=== PATIENT | male | born 1945 | race Caucasian/White ===

== ENCOUNTER 2016-10-27 12:08 | Outpatient (CLI) | payer MEDICARE, BC | END 2016-10-27 12:09 | disposition home or self-care (01) | DX: Z00.00 Encounter for general adult medical examination without abnormal findings (principal); E11.9 Type 2 diabetes mellitus without complications; I10 Essential (primary) hypertension ==

== ENCOUNTER 2017-01-28 10:36 | Outpatient (CLI) | payer MEDICARE, BC | END 2017-01-28 10:37 | disposition home or self-care (01) | DX: E11.9 Type 2 diabetes mellitus without complications (principal) ==

== ENCOUNTER 2017-05-12 08:00 | Outpatient (CLI) | payer MEDICARE, BC ==
[2017-05-12 13:33] LABS: BUN - BLOOD UREA NITROGEN 31 mg/dL (6-20); CARBON DIOXIDE - CO2 29 mmol/L (21-32); CHLORIDE 104 mmol/L (101-111); CHOL/HDL RATIO 2.4 (<5.0); CHOLESTEROL 88 mg/dL; CREATININE 0.8 mg/dL (0.6-1.2); GFR - MDRD 95 (>89); GLUCOSE 173 mg/dL (70-100); HDL CHOLESTEROL 36 mg/dL; LDL/HDL RATIO 1.1 (<3.6); POTASSIUM 3.8 mmol/L (3.5-5.0); SODIUM 140 mmol/L (135-145); TRIGLYCERIDES 59 mg/dL; VLDL CHOLESTEROL 12 mg/dL
[2017-05-12 13:48] LABS: HEMOGLOBIN A1C 0.9 g/dL
== END 2017-05-12 08:01 | disposition home or self-care (01) ==
LOC: LAB.WCP 08:00
PROVIDERS: ATTEND Family Medicine
DX: E11.9 Type 2 diabetes mellitus without complications (principal); I10 Essential (primary) hypertension
CPT/HCPCS: 36415; 80048; 80061; 83036

== ENCOUNTER 2017-09-27 08:00 | Outpatient (CLI) | payer MEDICARE, BC ==
[2017-09-27 13:46] LABS: CALCIUM 8.9 mg/dL (8.5-10.3); CREATININE 0.7 mg/dL (0.6-1.2); POTASSIUM 3.6 mmol/L (3.5-5.0)
[2017-09-27 14:07] LABS: HEMOGLOBIN A1C 0.62 g/dL
== END 2017-09-27 08:01 | disposition home or self-care (01) ==
LOC: LAB.WCP 08:00
PROVIDERS: ATTEND Family Medicine
DX: I10 Essential (primary) hypertension (principal); E11.9 Type 2 diabetes mellitus without complications
CPT/HCPCS: 36415; 80048; 83036

== ENCOUNTER 2018-03-25 08:00 | Outpatient (CLI) | payer MEDICARE, BC ==
[2018-03-25 14:11] LABS: HEMOGLOBIN A1C 0.85 g/dL; HEMOGLOBIN A1C % 7.3 % (4.6-6.2)
[2018-03-25 14:15] LABS: ALBUMIN 3.6 g/dL (3.2-5.5); ALBUMIN/GLOBULIN RATIO 1.1 (1.0-2.2); BILIRUBIN,TOTAL 1.3 mg/dL (0.2-1.0); CALCIUM 8.6 mg/dL (8.5-10.3); CREATININE 0.8 mg/dL (0.6-1.2); TOTAL PROTEIN 6.8 g/dL (6.7-8.2)
== END 2018-03-25 08:01 | disposition home or self-care (01) ==
LOC: LAB.WCP 08:00
PROVIDERS: ATTEND Family Medicine
DX: I10 Essential (primary) hypertension (principal); E11.9 Type 2 diabetes mellitus without complications
CPT/HCPCS: 36415; 80053; 82043; 83036

== ENCOUNTER 2018-09-20 08:43 | Outpatient (CLI) | payer MEDICARE, BC ==
[2018-09-20 12:31] LABS: BASOPHILS % (AUTO) 0.6 %; EOSINOPHILS # (AUTO) 0.3 10^3/uL (0.0-0.7); EOSINOPHILS % (AUTO) 4.7 %; HGB - HEMOGLOBIN 14.3 g/dL (14.0-18.0); LYMPHOCYTES # (AUTO) 2.1 10^3/uL (1.5-3.5); MEAN CORPUSCULAR HEMOGLOBIN 30.9 pg (27.0-31.0); MEAN CORPUSCULAR HGB CONC 34.2 g/dL (32.0-36.0); MEAN CORPUSCULAR VOLUME 90.6 fL (80.0-94.0); MEAN PLATELET VOLUME 9.5 fL (7.4-11.4); MONOCYTES # (AUTO) 0.5 10^3/uL (0.0-1.0); MONOCYTES % (AUTO) 7.7 %; PLT - PLATELET COUNT 168 10^3/uL (130-450); RED BLOOD COUNT 4.61 10^6/uL (4.70-6.10); RED CELL DISTRIBUTION WIDTH 13.8 % (12.0-15.0); WHITE BLOOD COUNT 5.9 x10^3/uL (4.8-10.8)
[2018-09-20 12:49] LABS: ALBUMIN 4.1 g/dL (3.2-5.5); ALBUMIN/GLOBULIN RATIO 1.5 (1.0-2.2); BILIRUBIN,TOTAL 1.8 mg/dL (0.2-1.0); CALCIUM 8.8 mg/dL (8.5-10.3); CREATININE 0.8 mg/dL (0.6-1.2); TOTAL PROTEIN 6.9 g/dL (6.7-8.2)
[2018-09-20 13:15] LABS: HB2 TOTAL 15.4 g/dL; HEMOGLOBIN A1C 1.01 g/dL; HEMOGLOBIN A1C % 8.2 % (4.6-6.2)
== END 2018-09-20 23:59 | disposition home or self-care (01) ==
LOC: LAB.WCP 08:43
PROVIDERS: ATTEND Family Medicine
DX: M13.862 Other specified arthritis, left knee (principal); E11.9 Type 2 diabetes mellitus without complications; I10 Essential (primary) hypertension
CPT/HCPCS: 36415; 80053; 82043; 83036; 85025

== ENCOUNTER 2018-12-15 07:17 | Outpatient (CLI) | payer MEDICARE, BC ==
[2018-12-15 12:28] LABS: CALCIUM 9.4 mg/dL (8.5-10.3)
[2018-12-15 12:46] LABS: HB2 TOTAL 14.5 g/dL; HEMOGLOBIN A1C 1.02 g/dL; HEMOGLOBIN A1C % 8.6 % (4.6-6.2)
[2018-12-15 12:51] LABS: ALBUMIN 3.8 g/dL (3.2-5.5); ALBUMIN/GLOBULIN RATIO 1.2 (1.0-2.2); BILIRUBIN,TOTAL 1.2 mg/dL (0.2-1.0); TOTAL PROTEIN 6.9 g/dL (6.7-8.2)
== END 2018-12-15 07:18 | disposition home or self-care (01) ==
LOC: LAB.WCP 07:17
PROVIDERS: ATTEND Family Medicine
DX: Z00.00 Encounter for general adult medical examination without abnormal findings (principal); E11.9 Type 2 diabetes mellitus without complications; I10 Essential (primary) hypertension
CPT/HCPCS: 36415; 80053; 82043; 83036

== ENCOUNTER 2019-12-05 08:32 | Outpatient (CLI) | payer MEDICARE, BC ==
[2019-12-05 12:12] LABS: ALBUMIN 3.8 g/dL (3.2-5.5); ALBUMIN/GLOBULIN RATIO 1.4 (1.0-2.2); BILIRUBIN,TOTAL 1.4 mg/dL (0.2-1.0); CALCIUM 8.6 mg/dL (8.5-10.3); CREATININE 0.8 mg/dL (0.6-1.2); TOTAL PROTEIN 6.5 g/dL (6.7-8.2)
[2019-12-05 12:17] LABS: HB2 TOTAL 13.8 g/dL; HEMOGLOBIN A1C 0.85 g/dL; HEMOGLOBIN A1C % 7.8 % (4.6-6.2)
== END 2019-12-05 23:59 | disposition home or self-care (01) ==
LOC: LAB.WCP 08:32
PROVIDERS: ATTEND Family Medicine
DX: E11.9 Type 2 diabetes mellitus without complications (principal)
CPT/HCPCS: 36415; 80053; 83036

== ENCOUNTER 2020-03-01 08:00 | Outpatient (CLI) | payer MEDICARE, BC ==
[2020-03-01 13:04] LABS: BASOPHILS # (AUTO) 0.1 10^3/uL (0.0-0.1); EOSINOPHILS # (AUTO) 0.3 10^3/uL (0.0-0.7); EOSINOPHILS % (AUTO) 5.2 %; HGB - HEMOGLOBIN 13.2 g/dL (14.0-18.0); LYMPHOCYTES # (AUTO) 2.5 10^3/uL (1.5-3.5); LYMPHOCYTES % (AUTO) 41.2 %; MEAN CORPUSCULAR VOLUME 93.6 fL (80.0-94.0); MEAN PLATELET VOLUME 11.6 fL (7.4-11.4); MONOCYTES # (AUTO) 0.5 10^3/uL (0.0-1.0); MONOCYTES % (AUTO) 7.7 %; NEUTROPHILS # (AUTO) 2.7 10^3/uL (1.5-6.6); NEUTROPHILS % (AUTO) 44.6 %; PLT - PLATELET COUNT 198 10^3/uL (130-450); RED CELL DISTRIBUTION WIDTH 13.7 % (12.0-15.0)
[2020-03-01 13:38] LABS: HB2 TOTAL 14.1 g/dL; HEMOGLOBIN A1C 0.79 g/dL; HEMOGLOBIN A1C % 7.3 % (4.6-6.2)
[2020-03-01 13:55] LABS: ALBUMIN/GLOBULIN RATIO 1.4 (1.0-2.2); ALKALINE PHOSPHATASE 49 IU/L (42-121); ALT ALANINE AMINOTRANSFERASE 31 IU/L (10-60); AST ASPARTATE AMINOTRANSFERASE 30 IU/L (10-42); BILIRUBIN,TOTAL 1.6 mg/dL (0.2-1.0); BUN - BLOOD UREA NITROGEN 27 mg/dL (6-20); CALCIUM 8.7 mg/dL (8.5-10.3); CARBON DIOXIDE - CO2 27 mmol/L (21-32); CHLORIDE 106 mmol/L (101-111); CHOL/HDL RATIO 2.2 (<5.0); CHOLESTEROL 75 mg/dL; CREATININE 0.9 mg/dL (0.6-1.2); HDL CHOLESTEROL 34 mg/dL; SODIUM 141 mmol/L (135-145); TOTAL PROTEIN 6.8 g/dL (6.7-8.2)
[2020-03-01 14:12] LABS: GLUCOSE 57 mg/dL (70-100)
== END 2020-03-01 23:59 | disposition home or self-care (01) ==
LOC: LAB.WCP 08:00
PROVIDERS: ATTEND Family Medicine
DX: I10 Essential (primary) hypertension (principal); E11.9 Type 2 diabetes mellitus without complications
CPT/HCPCS: 36415; 80053; 80061; 82043; 82570; 83036; 83721; 84443; 85025

== ENCOUNTER 2020-03-04 10:00 | Outpatient (CLI) | payer MEDICARE, BC ==
[2020-03-05 13:05] LABS: CREATININE,URINE 108.8 mg/dL; MICROALBUM/CREATININE RATIO,UR 9.2 ug/mg (<30.0)
== END 2020-03-04 23:59 | disposition home or self-care (01) ==
LOC: LAB.R 10:00
PROVIDERS: ATTEND Family Medicine
DX: E11.9 Type 2 diabetes mellitus without complications (principal); I10 Essential (primary) hypertension
CPT/HCPCS: 82043; 82570

== ENCOUNTER 2020-05-30 08:00 | Outpatient (CLI) | payer MEDICARE, BC ==
[2020-05-30 11:50] LABS: CALCIUM 9.4 mg/dL (8.5-10.3)
[2020-05-30 12:09] LABS: CREATININE,URINE 174.3 mg/dL; MICROALBUM/CREATININE RATIO,UR 66.6 ug/mg (<30.0); MICROALBUMIN,URINE 11.6 mg/dL (0-300.0)
[2020-05-30 12:16] LABS: HB2 TOTAL 14.2 g/dL; HEMOGLOBIN A1C 0.83 g/dL; HEMOGLOBIN A1C % 7.5 % (4.6-6.2)
== END 2020-05-30 23:59 | disposition home or self-care (01) ==
LOC: LAB.WCP 08:00
PROVIDERS: ATTEND Family Medicine
DX: E11.9 Type 2 diabetes mellitus without complications (principal); I10 Essential (primary) hypertension
CPT/HCPCS: 36415; 80048; 82043; 82570; 83036

== ENCOUNTER 2020-08-29 07:00 | Outpatient (CLI) | payer MEDICARE, BC ==
--- NOTE | 2020-08-29 18:54 | XRAY Report ---
PROCEDURE: Knee 4 View BILAT INDICATIONS: ARTHRITIS, L KNEE TECHNIQUE: 4 views of the bilateral knee(s) were acquired. COMPARISON: None. 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 No fractures or dislocations. No suspicious bony lesio ns. Soft tissues: No joint effusion. Chondrocalcinosis in bilateral medial and lateral femoral tibial co mpartments are also seen. 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 Bilateral medi al and lateral femoral tibial compartment chondrocalcinosis. Reviewed by: Hudson Cardoza MD on 08/29/2020 5:53 PM AKST Approved by: Hudson Cardoza MD on 08/29/2020 5:53 PM AKST Station ID: [id number]
== END 2020-08-29 23:59 | disposition home or self-care (01) ==
LOC: DI.N 07:00
PROVIDERS: ATTEND Orthopaedic Surgery
DX: M17.0 Bilateral primary osteoarthritis of knee (principal); M11.262 Other chondrocalcinosis, left knee; M11.261 Other chondrocalcinosis, right knee

== ENCOUNTER 2020-10-17 08:00 | Outpatient (CLI) | payer MEDICARE, BC ==
[2020-10-17 18:54] LABS: CALCIUM 9.1 mg/dL (8.5-10.3)
[2020-10-17 19:10] LABS: HEMOGLOBIN A1c% 8.1 % (4.27-6.07)
== END 2020-10-17 23:59 | disposition home or self-care (01) ==
LOC: LAB.WCP 08:00
PROVIDERS: ATTEND Physician Assistant Medical
DX: E11.9 Type 2 diabetes mellitus without complications (principal)
CPT/HCPCS: 36415; 80048; 82043; 82570; 83036

== ENCOUNTER 2020-10-21 10:00 | Outpatient (CLI) | payer MEDICARE, BC ==
[2020-10-21 19:44] LABS: CREATININE,URINE 157.2 mg/dL; MICROALBUM/CREATININE RATIO,UR 19.7 ug/mg (<30.0); MICROALBUMIN,URINE 3.1 mg/dL (0-300.0)
== END 2020-10-21 23:59 | disposition home or self-care (01) ==
LOC: LAB.R 10:00
PROVIDERS: ATTEND Physician Assistant Medical
DX: E11.9 Type 2 diabetes mellitus without complications (principal)
CPT/HCPCS: 82043; 82570

== ENCOUNTER 2021-01-24 08:00 | Outpatient (CLI) | payer MEDICARE, BC ==
[2021-01-24 19:00] LABS: ALBUMIN 4.1 g/dL (3.2-5.5); ALBUMIN/GLOBULIN RATIO 1.5 (1.0-2.2); ALKALINE PHOSPHATASE 56 IU/L (42-121); ALT ALANINE AMINOTRANSFERASE 32 IU/L (10-60); AST ASPARTATE AMINOTRANSFERASE 30 IU/L (10-42); BUN - BLOOD UREA NITROGEN 24 mg/dL (6-20); CALCIUM 8.7 mg/dL (8.5-10.3); CARBON DIOXIDE - CO2 24 mmol/L (21-32); CHLORIDE 104 mmol/L (101-111); CHOL/HDL RATIO 2.4 (<5.0); CHOLESTEROL 90 mg/dL; CREATININE 0.8 mg/dL (0.6-1.2); GFR - MDRD 94 (>89); GLUCOSE 149 mg/dL (70-100); HDL CHOLESTEROL 38 mg/dL; LDL CHOLESTEROL,CALCULATED 38 mg/dL; POTASSIUM 3.8 mmol/L (3.5-5.0); SODIUM 137 mmol/L (135-145); TOTAL PROTEIN 6.9 g/dL (6.7-8.2); TRIGLYCERIDES 71 mg/dL; VLDL CHOLESTEROL 14 mg/dL
[2021-01-24 19:27] LABS: BILIRUBIN,TOTAL 1.1 mg/dL (0.2-1.0)
[2021-01-24 20:42] LABS: ESTIMATED AVERAGE GLUCOSE 169 mg/dL (70-100); HEMOGLOBIN A1c% 7.5 % (4.27-6.07)
== END 2021-01-24 23:59 | disposition home or self-care (01) ==
LOC: LAB.WCP 08:00
PROVIDERS: ATTEND Physician Assistant Medical
DX: E11.9 Type 2 diabetes mellitus without complications (principal)
CPT/HCPCS: 36415; 80053; 80061; 83036; 83721

== ENCOUNTER 2021-06-16 09:58 | Outpatient (CLI) | payer MEDICARE, BC ==
[2021-06-16 12:06] LABS: CALCIUM 9.2 mg/dL (8.5-10.3); POTASSIUM 3.8 mmol/L (3.5-5.0)
[2021-06-16 12:37] LABS: ESTIMATED AVERAGE GLUCOSE 194 mg/dL (70-100); HEMOGLOBIN A1c% 8.4 % (4.27-6.07)
== END 2021-06-16 23:59 | disposition home or self-care (01) ==
LOC: LAB.WCP 09:58
PROVIDERS: ATTEND Physician Assistant Medical
DX: E11.9 Type 2 diabetes mellitus without complications (principal)
CPT/HCPCS: 36415; 80048; 83036

== ENCOUNTER 2021-09-16 08:00 | Outpatient (CLI) | payer MEDICARE, BC ==
[2021-09-16 12:17] LABS: ALBUMIN 3.8 g/dL (3.2-5.5); ALBUMIN/GLOBULIN RATIO 1.3 (1.0-2.2); ALKALINE PHOSPHATASE 50 IU/L (42-121); ALT ALANINE AMINOTRANSFERASE 24 IU/L (10-60); AST ASPARTATE AMINOTRANSFERASE 23 IU/L (10-42); BILIRUBIN,TOTAL 1.3 mg/dL (0.2-1.0); BUN - BLOOD UREA NITROGEN 42 mg/dL (6-20); CALCIUM 9.1 mg/dL (8.5-10.3); CARBON DIOXIDE - CO2 28 mmol/L (21-32); CHLORIDE 102 mmol/L (101-111); CHOL/HDL RATIO 2.3 (<5.0); CHOLESTEROL 77 mg/dL; CREATININE 1.4 mg/dL (0.6-1.2); GFR - MDRD 49 (>89); GLUCOSE 84 mg/dL (70-100); HDL CHOLESTEROL 34 mg/dL; LDL CHOLESTEROL,CALCULATED 34 mg/dL; SODIUM 141 mmol/L (135-145); TOTAL PROTEIN 6.8 g/dL (6.7-8.2); TRIGLYCERIDES 45 mg/dL; VLDL CHOLESTEROL 9 mg/dL
[2021-09-16 12:46] LABS: ESTIMATED AVERAGE GLUCOSE 174 mg/dL (70-100); HEMOGLOBIN A1c% 7.7 % (4.27-6.07)
== END 2021-09-16 23:59 ==
LOC: LAB.WCP 08:00
PROVIDERS: ATTEND Physician Assistant Medical
DX: E11.9 Type 2 diabetes mellitus without complications (principal)
CPT/HCPCS: 36415; 80053; 80061; 83036; 83721

== ENCOUNTER 2021-12-16 07:54 | Outpatient (CLI) | payer MEDICARE, BC ==
[2021-12-16 12:13] LABS: CALCIUM 9.2 mg/dL (8.5-10.3); CREATININE 1.2 mg/dL (0.6-1.2); POTASSIUM 3.6 mmol/L (3.5-5.0)
[2021-12-16 12:23] LABS: ESTIMATED AVERAGE GLUCOSE 157 mg/dL (70-100); HEMOGLOBIN A1c% 7.1 % (4.27-6.07)
[2021-12-16 12:34] LABS: CREATININE,URINE 251.4 mg/dL; MICROALBUM/CREATININE RATIO,UR 6.8 ug/mg (<30.0); MICROALBUMIN,URINE 1.7 mg/dL (0-300.0)
== END 2021-12-16 07:55 | disposition home or self-care (01) ==
LOC: LAB.N 07:54
PROVIDERS: ATTEND Physician Assistant Medical
DX: E11.9 Type 2 diabetes mellitus without complications (principal)
CPT/HCPCS: 36415; 80048; 82043; 82570; 83036

== ENCOUNTER 2021-12-19 11:20 | Outpatient (CLI) | payer MEDICARE, BC ==
[2021-12-19 18:04] LABS: BASOPHILS # (AUTO) 0.1 10^3/uL (0.0-0.1); BASOPHILS % (AUTO) 0.8 %; EOSINOPHILS # (AUTO) 0.2 10^3/uL (0.0-0.7); EOSINOPHILS % (AUTO) 3.3 %; HCT - HEMATOCRIT 41.8 % (42.0-52.0); HGB - HEMOGLOBIN 13.5 g/dL (14.0-18.0); LYMPHOCYTES # (AUTO) 2.6 10^3/uL (1.5-3.5); LYMPHOCYTES % (AUTO) 39.7 %; MEAN CORPUSCULAR HEMOGLOBIN 30.2 pg (27.0-31.0); MEAN CORPUSCULAR HGB CONC 32.3 g/dL (32.0-36.0); MEAN CORPUSCULAR VOLUME 93.5 fL (80.0-94.0); MEAN PLATELET VOLUME 11.3 fL (7.4-11.4); MONOCYTES # (AUTO) 0.5 10^3/uL (0.0-1.0); MONOCYTES % (AUTO) 7.4 %; NEUTROPHILS # (AUTO) 3.2 10^3/uL (1.5-6.6); NEUTROPHILS % (AUTO) 48.5 %; PLT - PLATELET COUNT 199 10^3/uL (130-450); RED BLOOD COUNT 4.47 10^6/uL (4.70-6.10); RED CELL DISTRIBUTION WIDTH 13.3 % (12.0-15.0); WHITE BLOOD COUNT 6.7 x10^3/uL (4.8-10.8)
[2021-12-19 18:25] LABS: THYROID STIMULATING HORMONE 0.93 uIU/mL (0.34-5.60)
== END 2021-12-19 11:21 | disposition home or self-care (01) ==
LOC: LAB.N 11:20
PROVIDERS: ATTEND Physician Assistant Medical
DX: R55 Syncope and collapse (principal); I10 Essential (primary) hypertension
CPT/HCPCS: 36415; 83735; 84443; 85025

== ENCOUNTER 2022-05-13 20:39 | Outpatient (CLI) | payer MEDICARE, BC | END 2022-05-13 20:40 | disposition critical access hospital (66) | LOC: EMS 20:39 | DX: R55 Syncope and collapse (principal); R00.1 Bradycardia, unspecified | CPT/HCPCS: A0425; A0427 ==

== ENCOUNTER 2022-05-13 20:50 | Emergency (ER) | payer MEDICARE, BC ==
--- NOTE | 2022-05-13 20:58 | ED Physician Documentation ---
History of Present Illness - Stated complaint Stated Complaint: ARNAUD - Chief complaint Chief Complaint: Neuro - History obtained from History obtained from: Patient, EMS - History of Present Illness Timing: Prior to arrival - Additonal information Additional information: 76-year-old male with history of CHF, insulin-dependent diabetes, hypertension, hyperlipidemia presents by EMS from home for bradycardia and syncope. Patient states that he had just finished eating dinner and felt in his usual state of health. He was laying down when all of a sudden his was shaking him awake and stating that he had passed out. He states that he felt like he needed to use the restroom and passed out again. Patient states that he fell on his hands and knees, says "I don't think I hit my head", denies use of blood thinners. EMS report that when they arrived the patient's heart rate was 30. They administered 2 mg of atropine and gradually the patient's heart rate improved to 100 bpm. Accu-Chek not obtained in route. On arrival patient stated that he felt "fine" and denied any further complaints. He denied any chest pain, shortness of breath, leg swelling, head pain, blurred vision, other complaints this time. He states he cannot remember the medicines that he takes, however his is in route to provide full medical list. Review of Systems Ten Systems: 10 systems reviewed and negative Constitutional: denies: Fever, Chills, Myalgias Cardiac: denies: Chest pain / pressure, Palpitations, Pedal edema, Calf pain Respiratory: denies: Dyspnea, Cough, Hemoptysis, Wheezing Neurologic: reports: Syncope. denies: Seizure PD PAST MEDICAL HISTORY - Past Medical History Past Medical History: Yes Cardiovascular: Congestive heart failure, High cholesterol Endocrine/Autoimmune: Type 2 diabetes - Allergies Allergies/Adverse Reactions: Allergies Allergy/AdvReac Type Severity Reaction Status Date / Time No Known Drug Allergies Allergy Verified 05/13/22 21:05 PD ED PE NORMAL - Vitals Vital signs reviewed: Yes - General General: Alert and oriented X 3, No acute distress, Well developed/nourished - HEENT HEENT: Atraumatic, PERRL, EOMI, Ears normal - Neck Neck: Supple, no meningeal sign, No bony TTP, No adenopathy - Cardiac Cardiac: RRR, No gallop, No rub, Strong equal pulses - Respiratory Respiratory: No respiratory distress, Clear bilaterally - Abdomen Abdomen: Soft, Non tender, Non distended, No organomegaly - Male Male : Deferred - Rectal Rectal: Deferred - Back Back: No CVA TTP, No spinal TTP - Derm Derm: Normal color, Warm and dry, No rash - Extremities Extremities: No deformity, No tenderness to palpate, Normal ROM s pain, No edema - Neuro Neuro: Alert and oriented X 3, network specialist 2-12 intact, No motor deficit, Normal speech - Psych Psych: Normal mood, Normal affect Results - Vitals Vitals: Vital Signs - 24 hr 05/13/22 05/13/22 05/13/22 21:01 21:05 21:34 Temperature 36.8 C Heart Rate 101 H 101 H 98 Respiratory 17 16 16 Rate Blood Pressure 120/61 120/61 114/65 O2 Saturation 98 100 97 05/13/22 05/13/22 05/13/22 22:04 22:30 23:00 Temperature Heart Rate 90 85 77 Respiratory 16 14 14 Rate Blood Pressure 133/71 H 113/64 127/71 O2 Saturation 99 98 98 05/13/22 05/14/22 05/14/22 23:30 00:00 00:30 Temperature Heart Rate 78 77 79 Respiratory 16 15 14 Rate Blood Pressure 134/64 H 134/64 H 126/74 O2 Saturation 98 98 99 05/14/22 05/14/22 05/14/22 01:00 01:30 02:00 Temperature 37.0 C Heart Rate 78 75 76 Respiratory 14 20 14 Rate Blood Pressure 128/75 114/63 119/67 O2 Saturation 98 100 98 05/14/22 05/14/22 05/14/22 02:30 03:00 03:30 Temperature Heart Rate 70 79 74 Respiratory 15 15 17 Rate Blood Pressure 114/64 118/65 111/72 O2 Saturation 98 98 98 05/14/22 05/14/22 05/14/22 04:00 04:30 05:00 Temperature Heart Rate 75 75 70 Respiratory 14 12 14 Rate Blood Pressure 111/72 121/55 L 121/55 L O2 Saturation 96 98 96 05/14/22 05/14/22 05:30 06:00 Temperature Heart Rate 76 73 Respiratory 16 13 Rate Blood Pressure 121/58 L 111/61 O2 Saturation 98 97 Oxygen O2 Source Room air Oxygen Flow Rate 2 - EKG (time done) 2058 Rate: Rate (enter#) (101) Rhythm: Sinus tachycardia [place]: Normal Intervals: LBBB - Labs Labs: Laboratory Tests 05/13/22 05/13/22 05/13/22 21:26 21:26 21:26 WBC 6.9 RBC 3.72 L Hgb 11.4 L Hct 34.7 L MCV 93.3 MCH 30.6 MCHC 32.9 RDW 13.2 Plt Count 171 MPV 10.5 Neut # (Auto) 4.5 Lymph # (Auto) 1.6 [place] # (Auto) 0.5 Eos # (Auto) 0.2 Baso # (Auto) 0.0 Absolute Nucleated RBC 0.00 Nucleated RBC % 0.0 PT 11.9 INR 1.1 Sodium 141 Potassium 4.3 Chloride 111 Carbon Dioxide 19 L Anion Gap 11.0 BUN 38 H Creatinine 1.4 H Estimated GFR (MDRD) 49 L Glucose 149 H Calcium 8.9 Magnesium 1.6 L Total Bilirubin 1.3 H AST 97 H ALT 68 H Alkaline Phosphatase 57 Troponin I High Sens B-Natriuretic Peptide Total Protein 6.7 Albumin 3.8 Globulin 2.9 Albumin/Globulin Ratio 1.3 TSH SARS-CoV-2 (PCR) 05/13/22 05/13/22 05/13/22 21:26 21:26 21:26 WBC RBC Hgb Hct MCV MCH MCHC RDW Plt Count MPV Neut # (Auto) Lymph # (Auto) [place] # (Auto) Eos # (Auto) Baso # (Auto) Absolute Nucleated RBC Nucleated RBC % PT INR Sodium Potassium Chloride Carbon Dioxide Anion Gap BUN Creatinine Estimated GFR (MDRD) Glucose Calcium Magnesium Total Bilirubin AST ALT Alkaline Phosphatase Troponin I High Sens 8.4 B-Natriuretic Peptide 65 Total Protein Albumin Globulin Albumin/Globulin Ratio TSH 2.93 SARS-CoV-2 (PCR) 05/14/22 04:19 WBC RBC Hgb Hct MCV MCH MCHC RDW Plt Count MPV Neut # (Auto) Lymph # (Auto) [place] # (Auto) Eos # (Auto) Baso # (Auto) Absolute Nucleated RBC Nucleated RBC % PT INR Sodium Potassium Chloride Carbon Dioxide Anion Gap BUN Creatinine Estimated GFR (MDRD) Glucose Calcium Magnesium Total Bilirubin AST ALT Alkaline Phosphatase Troponin I High Sens B-Natriuretic Peptide Total Protein Albumin Globulin Albumin/Globulin Ratio TSH SARS-CoV-2 (PCR) NOT DETECTED PD MEDICAL DECISION MAKING - ED course Complexity details: reviewed old records, reviewed results, re-evaluated patient, considered differential, d/w patient, d/w [employer] sales consultant ED course: Patient with syncopal episode, presumed to be from profound, severe bradycardia. Resolved after 2 mg of atropine. EMS strip shows advanced third-degree heart block. Patient's only antinodal medication on his record is carvedilol. arrived shortly after the patient did and stated that the patient recently had a catheterization, which showed no blockages in his arteries. Cardiology work-up is obtained. Patient currently sinus rhythm at 80 bpm, left bundle branch seen on EKG, patient states this is a known finding for him. Labs and imaging are thus far unremarkable. Patient has chronic CKD, at baseline. Has remained in sinus rhythm at 80 to 100 bpm since arrival, no further episodes of bradycardia. Patient's cardiology team at [facility] (Dr. Jess Calix) consulted, who stated that the patient was evaluated recently for another syncopal episode. He underwent cardiac monitoring, which showed a concerning run of V. tach at that time. Given that the patient has had an episode of profound bradycardia and V. tach on outpatient cardiac monitoring patient should be transferred for EP evaluation and possible pacemaker placement. CT of brain shows probable old findings, however cannot rule out small subarachnoid. Recommended repeat evaluation in 4 hours. Patient states that he feels fine, there is no sequela of trauma, he states that he fell onto his hands and knees and did not hit his head. We will repeat CT imaging, if no changes are stable will call for transfer. and patient are updated of the plan, they are in agreement at this time. Repeat head CT negative for acute findings. Patient has remained in sinus rhythm. Patient accepted by Dr. Morris at [facility] for transfer. COVID test pending, awaiting transport. 0600 - EMS transport arrived. Patient transferred in stable condition. Departure - Departure Disposition: 02 Transfer Acute Care Hosp Clinical Impression: Complete heart block Syncope Qualifiers: Syncope type: unspecified Qualified Code(s): R55 - Syncope and collapse
--- NOTE | 2022-05-13 21:26 | XRAY Report ---
PROCEDURE: Chest 1 View X-Ray INDICATIONS: SYNCOPE TECHNIQUE: One view of the chest was acquired. COMPARISON: None. FINDINGS: Surgical changes and devices: None. Lungs and pleura: No pleural effusions or pneumothorax. Lungs are clear. Mediastinum: Mediastinal contours appear normal. Heart size is normal. Bones and chest wall: No suspicious bony lesions. Overlying soft tissues appear unremarkable. IMPRESSION: No acute cardiopulmonary process demonstrated radiographically. Reviewed by: Jass Ch MD on 05/13/2022 9:24 PM PDT Approved by: Jass Ch MD on 05/13/2022 9:24 PM PDT Station ID: [id number]
[2022-05-13 21:37] LABS: BASOPHILS % (AUTO) 0.6 %; EOSINOPHILS # (AUTO) 0.2 10^3/uL (0.0-0.7); EOSINOPHILS % (AUTO) 3.1 %; HCT - HEMATOCRIT 34.7 % (42.0-52.0); HGB - HEMOGLOBIN 11.4 g/dL (14.0-18.0); LYMPHOCYTES # (AUTO) 1.6 10^3/uL (1.5-3.5); LYMPHOCYTES % (AUTO) 23.8 %; MEAN CORPUSCULAR HEMOGLOBIN 30.6 pg (27.0-31.0); MEAN CORPUSCULAR HGB CONC 32.9 g/dL (32.0-36.0); MEAN CORPUSCULAR VOLUME 93.3 fL (80.0-94.0); MEAN PLATELET VOLUME 10.5 fL (7.4-11.4); MONOCYTES # (AUTO) 0.5 10^3/uL (0.0-1.0); MONOCYTES % (AUTO) 7.4 %; NEUTROPHILS # (AUTO) 4.5 10^3/uL (1.5-6.6); NEUTROPHILS % (AUTO) 64.7 %; PLT - PLATELET COUNT 171 10^3/uL (130-450); RED BLOOD COUNT 3.72 10^6/uL (4.70-6.10); RED CELL DISTRIBUTION WIDTH 13.2 % (12.0-15.0); WHITE BLOOD COUNT 6.9 x10^3/uL (4.8-10.8)
[2022-05-13 21:39] LABS: INR 1.1 (0.8-1.2); PT - PROTHROMBIN TIME 11.9 secs (9.9-12.6)
[2022-05-13 21:58] LABS: ALBUMIN 3.8 g/dL (3.2-5.5); ALBUMIN/GLOBULIN RATIO 1.3 (1.0-2.2); BILIRUBIN,TOTAL 1.3 mg/dL (0.2-1.0); CALCIUM 8.9 mg/dL (8.5-10.3); CREATININE 1.4 mg/dL (0.6-1.2); MAGNESIUM 1.6 mg/dL (1.7-2.8); POTASSIUM 4.3 mmol/L (3.5-5.0); TOTAL PROTEIN 6.7 g/dL (6.7-8.2)
--- NOTE | 2022-05-13 22:24 | CT Report ---
PROCEDURE: HEAD WO INDICATIONS: SYNCOPE TECHNIQUE: Noncontrast 4.5 mm thick angled axial sections acquired from the foramen magnum to the vertex. For r adiation dose reduction, the following was used: automated exposure control, adjustment of mA and/or kV according to patient size. COMPARISON: None. FINDINGS: There are a few small focal hyperdensities localizing to the anterior frontal cortex adjacent to the skull base this is favored to represent volume averaging with the skull and benign hyperostosis front jocelin, subtle cortical contusion or small arachnoid hemorrhage would appear similar and cannot be stri ctly excluded. There is otherwise no evidence of acute intracranial hemorrhage or abnormal extra-axia l fluid collection. No evidence of mass effect or midline shift. The ventricular system and basilar c isterns are patent. Mild global volume loss and chronic microvascular ischemic changes. Paranasal sin uses and mastoid air cells are predominantly clear other than moderate left mastoid air cell effusion and moderate mucosal thickening in the right maxillary sinus. No significant orbital abnormality. IMPRESSION: Indeterminate cortical hypodensities in the frontal lobes, favored to represent volume averaging marianela fact although small cortical contusions or subarachnoid hemorrhages cannot be strictly excluded. Hair elate for any history of head impact during syncopal episode. Four hour follow-up examination would b e helpful to differentiate artifact from intracranial hemorrhage. Reviewed by: Jass Ch MD on 05/13/2022 10:23 PM PDT Approved by: Jass Ch MD on 05/13/2022 10:23 PM PDT Station ID: [id number]
[2022-05-14 06:04] VITALS: BP 111/61
--- NOTE | 2022-05-14 09:09 | CT Report ---
PROCEDURE: HEAD WO INDICATIONS: RPT ABNORMAL CT TECHNIQUE: Noncontrast 4.5 mm thick angled axial sections acquired from the foramen magnum to the vertex. For r adiation dose reduction, the following was used: automated exposure control, adjustment of mA and/or kV according to patient size. COMPARISON: CT head without, 05/13/2022. FINDINGS: Image quality: Excellent. CSF spaces: Basal cisterns are patent. No extra-axial fluid collections. Ventricles are normal in size and shape. Brain: No midline shift. No intracranial masses or hemorrhage. Mild cerebral volume loss and perive ntricular white matter chronic small vessel ischemic changes. Skull and face: Calvarium and visualized facial bones are intact, without suspicious lesions. Sinuses: Visualized sinuses are clear. There is fluid in the left mastoids. IMPRESSION: 1. No acute intracranial abnormalities. Previously described left frontal indeterminate hypodensities are most likely caused by artifacts. 2. Fluid in the left mastoids. Recommend clinical correlation for mastoiditis. No significant discrepancy with the preliminary interpretation. Reviewed by: Black Salomon MD on 05/14/2022 9:08 AM PDT Approved by: Black Salomon MD on 05/14/2022 9:08 AM PDT Station ID: [id number]
== END 2022-05-14 06:13 | disposition short-term general hospital (02) ==
LOC: EDUNIT# → ED 20:50
DX: I44.2 Atrioventricular block, complete (principal); Z20.822 Contact with and (suspected) exposure to COVID-19
CPT/HCPCS: 36415; 80053; 83735; 83880; 84443; 84484; 85025; 85610; 93005; 99285; 99291

== ENCOUNTER 2022-05-14 06:19 | Outpatient (CLI) | payer MEDICARE, BC | END 2022-05-14 06:20 | disposition short-term general hospital (02) | LOC: EMS 06:19 | PROVIDERS: ATTEND Emergency Medicine | DX: I44.2 Atrioventricular block, complete (principal) | CPT/HCPCS: A0425; A0427 ==

== ENCOUNTER 2022-07-29 06:23 | Day surgery (SDC) | payer MEDICARE, BC ==
[2022-07-29] MEDS ORDERED: LACTATED RINGERS 1,000 ML IV ONE ×2 (06:42→08:13)
[2022-07-29] MEDS ORDERED: PROPOFOL 200 MG/20 ML VIAL IVP ONE (07:37)
[2022-07-29] MEDS ORDERED: PROPOFOL 500 MG/50 ML 500 MG/50 ML VIAL ONE (07:37)
--- NOTE | 2022-07-29 07:40 | ANESTHESIA ---
Pre-Anesthesia VS, & Labs - Diagnosis screening colonoscopy - Procedure colonoscopy Vital Signs: Temp Pulse Resp BP Pulse Ox O2 Flow Rate 36.1 C L 60 16 154/66 H 100 0 07/29/22 06:42 07/29/22 06:42 07/29/22 06:42 07/29/22 06:42 07/29/22 06:42 07/29/22 06:42 Height: 5 ft 8 in Weight (kg): 79.4 kg Body Mass Index: 26.6 BMI Classification: Overweight - NPO >8 hours - Lab Results Current Lab Results: Laboratory Tests 07/29/22 06:56: POC Whole Bld Glucose 120 H Home Medications and Allergies Home Medications: Ambulatory Orders Aspirin [[place] Aspirin] 81 mg PO DAILY 07/28/22 Carvedilol [Coreg] 25 mg PO DAILY 07/28/22 Dulaglutide [Trulicity] 0.75 mg SQ DAILY 07/28/22 Glipizide [Glipizide ER] 5 mg PO DAILY 07/28/22 Insulin Glargine [Lantus Solostar] 100 unit SQ DAILY 07/28/22 Losartan [Cozaar] 100 mg PO DAILY 07/28/22 Spironolactone [Aldactone] 25 mg PO DAILY 07/28/22 hydroCHLOROthiazide [Hydrodiuril] 25 mg PO DAILY 07/28/22 metFORMIN [Glucophage] 1,000 mg PO BID 07/28/22 Aspirin [[place] Aspirin] 81 mg PO DAILY 07/28/22 Carvedilol [Coreg] 25 mg PO DAILY 07/28/22 Dulaglutide [Trulicity] 0.75 mg SQ DAILY 07/28/22 Glipizide [Glipizide ER] 5 mg PO DAILY 07/28/22 Insulin Glargine [Lantus Solostar] 100 unit SQ DAILY 07/28/22 Losartan [Cozaar] 100 mg PO DAILY 07/28/22 Spironolactone [Aldactone] 25 mg PO DAILY 07/28/22 hydroCHLOROthiazide [Hydrodiuril] 25 mg PO DAILY 07/28/22 metFORMIN [Glucophage] 1,000 mg PO BID 07/28/22 Allergies/Adverse Reactions: Allergies Allergy/AdvReac Type Severity Reaction Status Date / Time No Known Drug Allergies Allergy Verified 10/12/22 06:56 Anes History & Medical History - Anesthetic History Anesthesia Complications: reports: No previous complications - Medical History Cardiovascular: reports: Congestive heart failure, High cholesterol Endocrine/Autoimmune: reports: Type 2 diabetes History of Cancer?: No - Surgical History General: reports: Cholecystectomy, Colonoscopy Exam General: Alert, Oriented x3 Dental: WNL Mouth Opening: Greater than 4 Fingerbreadths Neck Mobility: Normal Mallampati classification: II Respiratory: Lungs clear Cardiovascular: Regular rate (paced) Mental/Cognitive Status: Alert/Oriented X3 Plan Anesthesia Type: Total IV Consent for Procedure(s) Verified and Reviewed: Yes Code Status: Attempt Resuscitation ASA classification: 3-Severe systemic disease Is this case an emergency?: No
[2022-07-29 08:31] VITALS: BP 127/65
--- NOTE | 2022-07-29 11:02 | ANESTHESIA POST OP EVALUATION ---
Anesthesia Post Eval - Post Anesthesia Eval Vitals: Last Vital Signs Temp 36.4 C L 07/29/22 08:31 Pulse 60 07/29/22 08:31 Resp 16 07/29/22 08:31 BP 127/65 07/29/22 08:31 Pulse Ox 100 07/29/22 08:31 O2 Flow Rate 0 07/29/22 06:42 CV Function Including HR & BP: Stable Pain Control: Satisfactory Nausea & Vomiting: Negative Mental Status: Baseline Respiratory Status: Airway Patent Hydration Status: Satisfactory Anesthesia Complications: None
== END 2022-07-29 06:24 | disposition home or self-care (01) ==
LOC: SDS 06:23
PROVIDERS: ATTEND Surgery
PROC: 0DBP8ZX Excision of Rectum, Via Natural or Artificial Opening Endoscopic, Diagnostic (ICD-10-PCS; 2022-07-29)
PROC: 0DBQ8ZX Excision of Anus, Via Natural or Artificial Opening Endoscopic, Diagnostic (ICD-10-PCS; principal; 2022-07-29 07:30)
DX: R19.5 Other fecal abnormalities (principal); K57.30 Diverticulosis of large intestine without perforation or abscess without bleeding; K62.0 Anal polyp; K62.1 Rectal polyp; I10 Essential (primary) hypertension; E11.9 Type 2 diabetes mellitus without complications; Z79.4 Long term (current) use of insulin
CPT/HCPCS: 45380; J7120

== ENCOUNTER 2022-09-22 12:28 | Outpatient (CLI) | payer MEDICARE, BC | END 2022-09-22 23:59 | disposition EMS.NT | LOC: EMS 12:28 | DX: E11.649 Type 2 diabetes mellitus with hypoglycemia without coma (principal); Z79.4 Long term (current) use of insulin ==

== ENCOUNTER 2022-12-17 15:06 | Outpatient (CLI) | payer MEDICARE, BC ==
[2022-12-17 18:31] LABS: ALBUMIN 3.8 g/dL (3.2-5.5); BILIRUBIN,DIRECT 0.1 mg/dL (0.1-0.5); CREATININE 0.8 mg/dL (0.6-1.2); TOTAL PROTEIN 6.9 g/dL (6.7-8.2)
== END 2022-12-17 15:07 | disposition home or self-care (01) ==
LOC: LAB.N 15:06
PROVIDERS: ATTEND Physician Assistant Medical
DX: B35.1 Tinea unguium (principal)
CPT/HCPCS: 36415; 80076; 82565; 84520

== ENCOUNTER 2022-12-21 07:48 | Outpatient (CLI) | payer MEDICARE, BC ==
[2022-12-21 13:10] LABS: CALCIUM 9.2 mg/dL (8.5-10.3); CREATININE 0.8 mg/dL (0.6-1.2); POTASSIUM 4.2 mmol/L (3.5-5.0)
[2022-12-21 13:46] LABS: ESTIMATED AVERAGE GLUCOSE 154 mg/dL (70-100)
== END 2022-12-21 07:49 | disposition home or self-care (01) ==
LOC: LAB.N 07:48
PROVIDERS: ATTEND Physician Assistant Medical
DX: E11.9 Type 2 diabetes mellitus without complications (principal)
CPT/HCPCS: 36415; 80048; 83036

== ENCOUNTER 2023-03-29 07:42 | Outpatient (CLI) | payer MEDICARE, BC ==
[2023-03-29 12:37] LABS: ESTIMATED AVERAGE GLUCOSE 154 mg/dL (70-100)
[2023-03-29 12:43] LABS: BUN - BLOOD UREA NITROGEN 34 mg/dL (6-20); CARBON DIOXIDE - CO2 28 mmol/L (21-32); CHLORIDE 108 mmol/L (101-111); CHOL/HDL RATIO 2.8 (<5.0); CHOLESTEROL 99 mg/dL; CREATININE 1.1 mg/dL (0.6-1.2); GFR - MDRD 65 (>89); GLUCOSE 150 mg/dL (70-100); HDL CHOLESTEROL 36 mg/dL; LDL CHOLESTEROL,CALCULATED 51 mg/dL; LDL/HDL RATIO 1.4 (<3.6); POTASSIUM 3.6 mmol/L (3.5-5.0); SODIUM 141 mmol/L (135-145); TRIGLYCERIDES 58 mg/dL; VLDL CHOLESTEROL 12 mg/dL
== END 2023-03-29 07:43 | disposition home or self-care (01) ==
LOC: LAB.N 07:42
PROVIDERS: ATTEND Physician Assistant Medical
DX: E11.9 Type 2 diabetes mellitus without complications (principal)
CPT/HCPCS: 36415; 80048; 80061; 83036; 83721

== ENCOUNTER 2023-06-23 08:27 | Outpatient (CLI) | payer MEDICARE, BC ==
[2023-06-23 12:38] LABS: CALCIUM 9.2 mg/dL (8.5-10.3); CREATININE 0.8 mg/dL (0.6-1.3); POTASSIUM 4.3 mmol/L (3.5-4.5)
[2023-06-23 12:40] LABS: ALBUMIN 4.2 g/dL (3.2-5.5); BILIRUBIN,DIRECT 0.15 mg/dL (0.03-0.18); BILIRUBIN,TOTAL 0.7 mg/dL (0.2-1.0); TOTAL PROTEIN 6.8 g/dL (6.4-8.9)
[2023-06-23 12:48] LABS: ESTIMATED AVERAGE GLUCOSE 171 mg/dL (70-100); HEMOGLOBIN A1c% 7.6 % (4.27-6.07)
== END 2023-06-23 08:28 | disposition home or self-care (01) ==
LOC: LAB.N 08:27
PROVIDERS: ATTEND Physician Assistant Medical
DX: E11.9 Type 2 diabetes mellitus without complications (principal); B35.1 Tinea unguium
CPT/HCPCS: 36415; 80048; 80076; 83036

== ENCOUNTER 2023-09-22 09:43 | Outpatient (CLI) | payer MEDICARE, BC ==
[2023-09-22 12:15] LABS: ESTIMATED AVERAGE GLUCOSE 183 mg/dL (70-100)
[2023-09-22 12:35] LABS: ALBUMIN 4.2 g/dL (3.2-5.5); ALBUMIN/GLOBULIN RATIO 1.6 (1.0-2.2); ALKALINE PHOSPHATASE 71 IU/L (42-121); ALT ALANINE AMINOTRANSFERASE 19 IU/L (10-60); AST ASPARTATE AMINOTRANSFERASE 19 IU/L (10-42); BILIRUBIN,TOTAL 0.9 mg/dL (0.2-1.0); BUN - BLOOD UREA NITROGEN 24 mg/dL (6-20); CALCIUM 9.1 mg/dL (8.5-10.3); CARBON DIOXIDE - CO2 30 mmol/L (21-32); CHLORIDE 106 mmol/L (101-111); CHOL/HDL RATIO 2.4 (<5.0); CHOLESTEROL 95 mg/dL; CREATININE 0.9 mg/dL (0.6-1.3); GFR - MDRD 82 (>89); GLUCOSE 221 mg/dL (74-104); HDL CHOLESTEROL 39 mg/dL; LDL CHOLESTEROL,CALCULATED 42 mg/dL; LDL/HDL RATIO 1.1 (<3.6); POTASSIUM 3.7 mmol/L (3.5-4.5); SODIUM 141 mmol/L (135-145); TOTAL PROTEIN 6.9 g/dL (6.4-8.9); TRIGLYCERIDES 70 mg/dL (48-352); VLDL CHOLESTEROL 14 mg/dL
== END 2023-09-22 09:44 | disposition home or self-care (01) ==
LOC: LAB.N 09:43
PROVIDERS: ATTEND Physician Assistant Medical
DX: E11.9 Type 2 diabetes mellitus without complications (principal)
CPT/HCPCS: 36415; 80053; 80061; 83036; 83721

== ENCOUNTER 2023-12-27 08:08 | Outpatient (CLI) | payer MEDICARE, BC ==
[2023-12-27 12:25] LABS: ESTIMATED AVERAGE GLUCOSE 171 mg/dL (70-100); HEMOGLOBIN A1c% 7.6 % (4.27-6.07)
[2023-12-27 12:27] LABS: CALCIUM 8.8 mg/dL (8.5-10.3); CREATININE 1.2 mg/dL (0.6-1.3)
== END 2023-12-27 08:09 | disposition home or self-care (01) ==
LOC: LAB.N 08:08
PROVIDERS: ATTEND Physician Assistant Medical
DX: E11.9 Type 2 diabetes mellitus without complications (principal)
CPT/HCPCS: 36415; 80048; 83036

== ENCOUNTER 2023-12-30 12:29 | Emergency (ER) | payer MEDICARE, BC ==
[2023-12-30 12:59] LABS: BASOPHILS # (AUTO) 0.1 10^3/uL (0.0-0.1); BASOPHILS % (AUTO) 0.7 %; EOSINOPHILS # (AUTO) 0.2 10^3/uL (0.0-0.7); HCT - HEMATOCRIT 38.7 % (42.0-52.0); HGB - HEMOGLOBIN 12.5 g/dL (14.0-18.0); LYMPHOCYTES # (AUTO) 1.4 10^3/uL (1.5-3.5); LYMPHOCYTES % (AUTO) 18.6 %; MEAN CORPUSCULAR HEMOGLOBIN 30.4 pg (27.0-31.0); MEAN CORPUSCULAR HGB CONC 32.3 g/dL (32.0-36.0); MEAN CORPUSCULAR VOLUME 94.2 fL (80.0-94.0); MEAN PLATELET VOLUME 10.6 fL (7.4-11.4); MONOCYTES # (AUTO) 0.6 10^3/uL (0.0-1.0); MONOCYTES % (AUTO) 8.2 %; NEUTROPHILS # (AUTO) 5.2 10^3/uL (1.5-6.6); NEUTROPHILS % (AUTO) 70.1 %; PLT - PLATELET COUNT 191 10^3/uL (130-450); RED BLOOD COUNT 4.11 10^6/uL (4.70-6.10); RED CELL DISTRIBUTION WIDTH 13.2 % (12.0-15.0); WHITE BLOOD COUNT 7.5 x10^3/uL (4.8-10.8)
[2023-12-30] MEDS: SODIUM CHLORIDE 0.9% 1,000 ML IV STA (13:11)
--- NOTE | 2023-12-30 13:28 | XRAY Report ---
PROCEDURE: Chest 1V INDICATIONS: Chest pain TECHNIQUE: One view of the chest was acquired. COMPARISON: None. FINDINGS: Surgical changes and devices: Left chest wall generator with cardiac leads. Lungs and pleura: No pleural effusions or pneumothorax. Lungs are clear. Mediastinum: Mediastinal contours appear normal. Heart size is normal. Bones and chest wall: No suspicious bony lesions. Overlying soft tissues appear unremarkable. IMPRESSION: No acute cardiopulmonary process. Reviewed by: Juan Bowman MD on 12/30/2023 1:27 PM PDT Approved by: Juan Bowman MD on 12/30/2023 1:27 PM PDT Station ID: [id number]
[2023-12-30 13:35] LABS: ALBUMIN 3.9 g/dL (3.2-5.5); ALBUMIN/GLOBULIN RATIO 1.4 (1.0-2.2); BILIRUBIN,TOTAL 1.1 mg/dL (0.2-1.0); CALCIUM 9.1 mg/dL (8.5-10.3); CREATININE 1.4 mg/dL (0.6-1.3); TOTAL PROTEIN 6.6 g/dL (6.4-8.9)
[2023-12-30 13:36] LABS: TROPONIN I HIGH SENSITIVITY 13.1 ng/L (2.3-19.7)
--- NOTE | 2023-12-30 15:54 | ED Physician Documentation ---
History of Present Illness - Stated complaint Stated Complaint: LOW BP - Chief complaint Chief Complaint: General - History obtained from History obtained from: Patient - Additonal information Additional information: The patient is sent to the emergency department from the walk-in clinic for chief complaint of feeling weak and lightheaded this morning. The patient states that he was feeling tired yesterday when he went to bed but otherwise well. His states he mowed the entire lawn with the walking mower instead of the rider and she was concerned that he might of overdone it. Patient does admit to not drinking enough water chronically and states he drink about a 12 ounce bottle of water while mowing the lawn. He denies any shortness of breath or chest pain. No nausea or vomiting. No diarrhea. He felt a little lightheaded when he got up this morning and then he went for a previously scheduled appointment for routine checkup with his primary at the walk-in and was found to be sweating and have a systolic blood pressure of 70. His PA rechecked it and then found it to be 60. She felt he was stable to come to the emergency department by private vehicle, and had the patient's drive him here. The patient states he is feeling a lot better now that he is getting some IV fluids. He denies any palpitations at the time of the lightheaded feeling. No other complaints at this time. PD PAST MEDICAL HISTORY - Past Medical History Past Medical History: Yes Cardiovascular: Congestive heart failure, High cholesterol, Arrhythmia Endocrine/Autoimmune: Type 2 diabetes Psych: Anxiety - Past Surgical History Past Surgical History: Yes General: Cholecystectomy, Colonoscopy Cardiovascular: Pacemaker - Present Medications Home Medications: Ambulatory Orders Medication Instructions Recorded Confirmed Aspirin [[place] Aspirin] 81 mg PO DAILY 07/28/22 11/03/22 Insulin Glargine [Lantus Solostar] 26 unit SQ DAILY 07/28/22 01/15/23 Losartan [Cozaar] 100 mg PO DAILY 07/28/22 11/03/22 carvediloL [Coreg] 25 mg PO DAILY 07/28/22 11/03/22 metFORMIN [Glucophage] 1,000 mg PO BID 07/28/22 11/03/22 Cholecalciferol (Vitamin D3) 50 mcg PO DAILY 11/03/22 11/03/22 [Vitamin D3] Cinnamon Bark Xt/Chromium/B7 1 each PO DAILY 11/03/22 11/03/22 [Nnzgrhus-Prdbnusu-Xxgovj Tab] Cyanocobalamin (Vitamin B-12) 2,000 mcg PO DAILY 11/03/22 11/03/22 [Vitamin B-12] FLUoxetine [PROzac] 40 mg PO DAILY 11/03/22 11/03/22 Ibuprofen [Motrin] 1 tablet PO DAILY 11/03/22 11/03/22 Insulin Lispro [Humalog Kwikpen 5 - 14 unit SUBQ TIDWM 11/03/22 11/03/22 U-100] Pravastatin [Pravachol] 10 mg PO HS 11/03/22 11/03/22 cloNIDine [Catapres] 0.3 mg PO BID 11/03/22 11/03/22 - Allergies Allergies/Adverse Reactions: Allergies Allergy/AdvReac Type Severity Reaction Status Date / Time No Known Drug Allergies Allergy Verified 12/30/23 12:42 - Social History Does the pt smoke?: No Smoking Status: Never smoker Does the pt drink ETOH?: No Does the pt have substance abuse?: No - Immunizations Immunizations are current?: Yes - POLST Patient has POLST: No PD ED PE NORMAL - Vitals Vital signs reviewed: Yes - General General: Alert and oriented X 3, No acute distress, Well developed/nourished - HEENT HEENT: Atraumatic, PERRL, EOMI, Moist mucous membranes - Neck Neck: Supple, no meningeal sign - Cardiac Cardiac: RRR, No murmur - Respiratory Respiratory: No respiratory distress, Clear bilaterally - Abdomen Abdomen: Soft, Non tender, Non distended - Derm Derm: Normal color, Warm and dry, No rash - Extremities Extremities: No deformity, No edema, No calf tenderness / cord - Neuro Neuro: 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 Relevant findings are: Rate: Rate (enter#) (60) Rhythm: Paced Compare to prior EKG: Old EKG unavailable Computer interpretation: Agree with computer - Labs Labs: Laboratory Tests 12/30/23 12/30/23 12/30/23 12:53 12:53 15:00 WBC 7.5 RBC 4.11 L Hgb 12.5 L Hct 38.7 L MCV 94.2 H MCH 30.4 MCHC 32.3 RDW 13.2 Plt Count 191 MPV 10.6 Neut # (Auto) 5.2 Lymph # (Auto) 1.4 L [place] # (Auto) 0.6 Eos # (Auto) 0.2 Baso # (Auto) 0.1 Absolute Nucleated RBC 0.00 Nucleated RBC % 0.0 Sodium 137 Potassium 4.0 Chloride 102 Carbon Dioxide 26 Anion Gap 9.0 BUN 40 H Creatinine 1.4 H Estimated GFR (MDRD) 49 L Glucose 262 H Calcium 9.1 Total Bilirubin 1.1 H AST 20 ALT 16 Alkaline Phosphatase 61 Troponin I High Sens 13.1 9.9 Total Protein 6.6 Albumin 3.9 Globulin 2.7 Albumin/Globulin Ratio 1.4 Lipase 13 PD Medical Decision Making - ED course Complexity details: reviewed old records, reviewed results, re-evaluated patient, considered differential, d/w patient, d/w family ED course: The patient was very well-appearing in the emergency department was feeling much better than he was earlier this morning. He was treated with a liter of 0.9 normal saline. His workup including EKG, chest x-ray, and laboratory studies including 2 troponins, was negative. He was in a normal paced rhythm on the monitor and vital signs were stable throughout his stay here. I reevaluated the patient who actually had had normal to high blood pressure throughout his entire stay here and he was feeling well and ready for discharge. I have discussed his need for follow-up with his primary for further evaluation. We discussed the usual indications for return. Departure - Departure Disposition: 01 Home, Self Care Clinical Impression: Hypotensive episode, Dehydration Condition: Stable Instructions: ED Near Syncope Vasovagal, ED Dehydration Comments: Your blood pressure has not been low here at all. Is not exactly clear what happened to cause your blood pressure to be low this morning, but you were definitely dehydrated. You been treated with IV fluids for this. There is no evidence of a "heart attack" today. Your cardiac enzymes all look good and your pacemaker appears to be functioning normally. Please follow-up with your primary to determine whether further workup is indicated. If you develop severe lightheadedness, chest pain, or shortness of breath, please return to the emergency department immediately. As far as your blood pressure, you should for now continue to take your blood pressure meds at home, as we have had no evidence of any low blood pressure here and in fact, some your blood pressures have been elevated. You will need to work with your PA to determine whether you need any medication changes going forward.
[2023-12-30 16:10] VITALS: BP 198/99; O2SAT 99
== END 2023-12-30 16:11 | disposition home or self-care (01) ==
LOC: ED 12:29
DX: I95.9 Hypotension, unspecified (principal); E86.0 Dehydration; I50.9 Heart failure, unspecified; E78.00 Pure hypercholesterolemia, unspecified; E11.9 Type 2 diabetes mellitus without complications; Z95.0 Presence of cardiac pacemaker; I49.9 Cardiac arrhythmia, unspecified; Z79.4 Long term (current) use of insulin; Z79.82 Long term (current) use of aspirin; Z79.899 Other long term (current) drug therapy
CPT/HCPCS: 36415; 80053; 83690; 84484; 85025; 93005; 96360; 99283

== ENCOUNTER 2024-03-23 07:57 | Outpatient (CLI) | payer MEDICARE, BC ==
[2024-03-23 12:01] LABS: BASOPHILS # (AUTO) 0.1 10^3/uL (0.0-0.1); BASOPHILS % (AUTO) 1.1 %; EOSINOPHILS # (AUTO) 0.3 10^3/uL (0.0-0.7); HCT - HEMATOCRIT 36.7 % (42.0-52.0); HGB - HEMOGLOBIN 11.9 g/dL (14.0-18.0); LYMPHOCYTES # (AUTO) 1.8 10^3/uL (1.5-3.5); LYMPHOCYTES % (AUTO) 28.3 %; MEAN CORPUSCULAR HEMOGLOBIN 30.5 pg (27.0-31.0); MEAN CORPUSCULAR HGB CONC 32.4 g/dL (32.0-36.0); MEAN CORPUSCULAR VOLUME 94.1 fL (80.0-94.0); MONOCYTES # (AUTO) 0.5 10^3/uL (0.0-1.0); MONOCYTES % (AUTO) 8.6 %; NEUTROPHILS # (AUTO) 3.6 10^3/uL (1.5-6.6); NEUTROPHILS % (AUTO) 57.7 %; PLT - PLATELET COUNT 174 10^3/uL (130-450); RED CELL DISTRIBUTION WIDTH 13.5 % (12.0-15.0); WHITE BLOOD COUNT 6.3 x10^3/uL (4.8-10.8)
[2024-03-23 12:31] LABS: ALBUMIN 3.9 g/dL (3.2-5.5); ALBUMIN/GLOBULIN RATIO 1.6 (1.0-2.2); ALKALINE PHOSPHATASE 65 IU/L (42-121); ALT ALANINE AMINOTRANSFERASE 17 IU/L (10-60); AST ASPARTATE AMINOTRANSFERASE 18 IU/L (10-42); BILIRUBIN,TOTAL 0.5 mg/dL (0.2-1.0); BUN - BLOOD UREA NITROGEN 25 mg/dL (6-20); CALCIUM 9.1 mg/dL (8.5-10.3); CARBON DIOXIDE - CO2 28 mmol/L (21-32); CHLORIDE 104 mmol/L (101-111); CHOL/HDL RATIO 2.2 (<5.0); CHOLESTEROL 95 mg/dL; CREATININE 1.1 mg/dL (0.6-1.3); GFR - MDRD 65 (>89); GLUCOSE 279 mg/dL (74-104); HDL CHOLESTEROL 43 mg/dL; LDL CHOLESTEROL,CALCULATED 39 mg/dL; LDL/HDL RATIO 0.9 (<3.6); POTASSIUM 4.5 mmol/L (3.5-4.5); SODIUM 138 mmol/L (135-145); TOTAL PROTEIN 6.3 g/dL (6.4-8.9); TRIGLYCERIDES 67 mg/dL (48-352); VLDL CHOLESTEROL 13 mg/dL
[2024-03-23 12:33] LABS: THYROID STIMULATING HORMONE 2.33 uIU/mL (0.34-5.60)
== END 2024-03-23 07:58 | disposition home or self-care (01) ==
LOC: LAB.N 07:57
PROVIDERS: ATTEND Physician Assistant Medical
DX: I10 Essential (primary) hypertension (principal); E78.5 Hyperlipidemia, unspecified
CPT/HCPCS: 36415; 80053; 80061; 83721; 84443; 85025

== ENCOUNTER 2024-06-22 09:16 | Outpatient (CLI) | payer MEDICARE, BC ==
[2024-06-22 12:42] LABS: ESTIMATED AVERAGE GLUCOSE 166 mg/dL (70-100); HEMOGLOBIN A1c% 7.4 % (4.27-6.07)
[2024-06-22 12:44] LABS: CALCIUM 8.7 mg/dL (8.5-10.3)
== END 2024-06-22 09:17 | disposition home or self-care (01) ==
LOC: LAB.N 09:16
PROVIDERS: ATTEND Physician Assistant Medical
DX: E11.9 Type 2 diabetes mellitus without complications (principal)
CPT/HCPCS: 36415; 80048; 83036